=== PATIENT | female | born 2000 | race African-American/Black ===

== ENCOUNTER → 2018-08-10 | Outpatient (CLI) | payer OTHER ==
[~2018-08-10] MED LIST: KEFLEX500 M1 PO; Motrin,Rufen800 MG PO; ZOFRAN ODT4 MG SL
== END | disposition home or self-care (01) ==
LOC: RESCLI 02:13
DX: Z32.00 Encounter for pregnancy test, result unknown (principal); K80.80 Other cholelithiasis without obstruction; F17.200 Nicotine dependence, unspecified, uncomplicated; Z71.6 Tobacco abuse counseling; Z79.899 Other long term (current) drug therapy; Z88.8 Allergy status to other drugs, medicaments and biological substances